=== PATIENT | female | born 1995 | race Caucasian/White ===

== ENCOUNTER 2019-08-06 16:51 | Emergency (ER) | payer OTHER, SELFPAY ==
[2019-08-06 17:04] VITALS: BP 122/71; PULSE 82; RESP 16; TEMP 37.7; O2SAT 100
--- NOTE | 2019-08-06 17:05 | ED.GENADULT ---
HPI - General Adult General Chief complaint: Urogenital-Female Stated complaint: frequent urination/discharge/ Time Seen by Provider: 08/06/19 17:10 Source: patient and RN notes reviewed Mode of arrival: ambulatory Limitations: no limitations History of Present Illness HPI narrative: This is a 24 years old female presents to the office for an evaluation of possible UTI. Symptoms began two days ago with urinary frequency. She also reported a little vaginal discharge however she believes the discharge is her normal discharge with no odor or changes in color. She is sexually active with one partner, same sex. Denies history of UTI or STD in the past. Related Data Home Medications Medication Instructions Recorded Confirmed No Home Medications 08/06/19 08/06/19 Allergies Allergy/AdvReac Type Severity Reaction Status Date / Time No Known Allergies Allergy Verified 08/06/19 17:12 Review of Systems Review of Systems: Narrative: CONSTITUTIONAL: Denies fever or feeling ill ENT: Denies congestion CARDIOVASCULAR: Denies chest pain RESPIRATORY: Denies dyspnea GASTROINTESTINAL: Denies abdominal pain, nausea, vomiting, diarrhea. GENITOURINARY: Denies urinary pain, hematuria or urgency. SKIN: Denies rash MUSCULOSKELETAL: Denies acute back pain NEUROLOGIC: Denies lightheaded PMFSH Comments At time of signature, I agree with nursing past medical, surgical, social and family history. There is no relevant family history pertinent to the presenting complaint. Exam Narrative: Exam Narrative: GENERAL: This is a well-nourished, well-developed patient, in no apparent distress. CARDIOVASCULAR: Regular rate and rhythm without murmurs, gallops, or rubs. RESPIRATORY: Clear to auscultation. Breath sounds equal bilaterally. No wheezes, rales, or rhonchi. GASTROINTESTINAL: Abdomen soft, non-tender, nondistended. Bowel sounds are active. No hepato-splenomegaly, or palpable masses. No guarding. : declined at this time. SKIN: warm, intact with no suspicious lesions or rash, good texture and turgor. NEURO: awake, alert, and oriented to person, place and time. There were no obvious focal neurologic abnormalities. Steady gait BACK: Nontender without deformity or crepitance. No flank tenderness. [place] Coma Scale Eye Opening: Spontaneous 4 Tracey Coma Scale Motor: Obeys Commands 6 Tracey Coma Scale Verbal: Oriented 5 Course Vital Signs Vital signs: Vital Signs Temperature 99.8 F H 08/06/19 17:04 Pulse Rate 82 08/06/19 17:04 Respiratory Rate 16 08/06/19 17:04 Blood Pressure 122/71 08/06/19 17:04 Pulse Oximetry 100 08/06/19 17:04 Temperature 99.8 F H 08/06/19 17:04 Pulse Rate 82 08/06/19 17:04 Respiratory Rate 16 08/06/19 17:04 Blood Pressure 122/71 08/06/19 17:04 Pulse Oximetry 100 08/06/19 17:04 Medical Decision Making MDM Narrative Medical decision making narrative: After reviewing the urine test with the patient, she would like to go ahead and get tested for STDs since she is already here. However she does not want to be treated for STIs here until she gets the test result back. Discharge instructions reviewed with patient, as well as provided in writing per nursing staff. The instructions also include specific and strict return/GO TO THE ER as well as f/u information. All questions have been answered, and the patient deny any further questions with discharge and discharge plan. Differential Diagnosis Differential Diagnosis: Cystitis, Nephrolithiasis, bacterial vaginosis, Nephritis, candidiasis, vaginitis, pyelonephritis, STD, syphilis, herpes Vital Signs Vital Signs: Vital Signs Temperature 99.8 F H 08/06/19 17:04 Pulse Rate 82 08/06/19 17:04 Respiratory Rate 16 08/06/19 17:04 Blood Pressure 122/71 08/06/19 17:04 Pulse Oximetry 100 08/06/19 17:04 Temperature 99.8 F H 08/06/19 17:04 Pulse Rate 82 08/06/19 17:04 Respiratory Rate 16 08/06/19 17:04
== END 2019-08-06 17:23 | disposition home or self-care (01) ==
PROVIDERS: Emergency Provider Nurse Practitioner
DX: R35.0 Frequency of micturition (principal)
CPT/HCPCS: 81003; 87086; 87491; 87591; 87661; 99204; G0463

== ENCOUNTER 2022-01-24 18:30 | Emergency (ER) | payer OTHER, BC, SELFPAY ==
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
[2022-01-24 18:56] VITALS: BP 125/79; PULSE 79; RESP 16; TEMP 36.6; O2SAT 100
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
== END 2022-01-24 19:52 | disposition home or self-care (01) ==
PROVIDERS: Emergency Provider Nurse Practitioner; PCP Internal Medicine
DX: S60.222A Contusion of left hand, initial encounter (principal); W51.XXXA Accidental striking against or bumped into by another person, initial encounter
CPT/HCPCS: 73130; 99213; G0463